=== PATIENT | male | born 1955 | race Caucasian/White ===

== ENCOUNTER 2020-04-20 19:02 | Emergency (ER) | payer BC ==
[2020-04-20] MEDS ORDERED: BABY ASPIRIN 81 MG CHEW PO ONE (19:20)
--- NOTE | 2020-04-20 19:20 | ERPHSYRPT ---
- History of Present Illness Time Seen by Provider: 04/20/20 19:15 Historian: patient Exam Limitations: no limitations Patient Subjective Stated Complaint: Chest pain Triage Nursing Assessment: Patient ambulated back to ED and transferred self to bed. Patient A+O X 3. Patient's skin pink, warm and dry. Patient complains of intermittent chest pain for the past couple of days. Patient currently denies pain or discomfort. Lungs clear a/p darian. Heart tones audible. No edema noted. Physician History: This is a 64-year-old diabetic white male with a history of hypertension who sees Dr. Bibi suarez guide delegate for blood pressure issues. Patient has never been diagnosed with coronary artery disease but thought at one point he had PVCs and 10 years ago he was evaluated by this guide delegate. Patient noticed, the last 2 days, some intermittent twinges of substernal pain without radiation. He arrives today with no chest pain whatsoever but was concerned about the twinges of pain. Patient is not short of breath. He has had no fever. He denies cough. He has no abdominal pain. He has had no nausea vomiting or diarrhea. Timing/Duration: day(s) (2) Activities at Onset: none Quality: other (Patient describes the pain as a brief twinge) Location: substernal, central Chest Pain Radiation: no radiation Severity of Pain-Max: mild Severity of Pain-Current: none Modifying Factors: Improves With: nothing Associated Symptoms: denies symptoms Prior Chest Pain/Cardiac Workup: echocardiography (10 years ago), stress test (10 years ago) Nitro Today/Relief: no nitro taken today Aspirin Treatment Today: 81 mg x 1, 81 mg x 3 (Here in the emergency department), provided at home Allergies/Adverse Reactions: No Known Drug Allergies Allergy (Verified 04/20/20 19:05) Home Medications: Aspirin [Dawna Chewable Aspirin] 81 mg PO DAILY 04/02/15 [History] Metoprolol Tartrate 50 mg [Lopressor 50 MG] 50 mg PO BID 04/02/15 [History] Ezetimibe 1 tab PO DAILY 04/20/20 [History] Lisinopril 10 mg [Zestril 10 MG] 1 tab PO DAILY 04/20/20 [History] Metformin HCl 500 mg [Glucophage 500 MG] 1 tab PO BID 04/20/20 [History] Hx Influenza Vaccination/Date Given: Yes Hx Pneumococcal Vaccination/Date Given: Yes Immunizations Up to Date: Yes Travel Risk - International Travel Have you traveled outside of the country in past 3 weeks: No - Coronavirus Screening Are you exhibiting any of the following symptoms?: No Close contact with a COVID-19 positive Pt in past 14-21 Days: No - Review of Systems Constitutional: No Symptoms Eyes: No Symptoms Ears, Nose, & Throat: No Symptoms Respiratory: No Symptoms Cardiac: Chest Pain (Described as a twinge that is intermittent) Abdominal/Gastrointestinal: No Symptoms Genitourinary Symptoms: No Symptoms Musculoskeletal: No Symptoms Skin: No Symptoms Neurological: No Symptoms Psychological: No Symptoms Endocrine: No Symptoms Hematologic/Lymphatic: No Symptoms Immunological/Allergic: No Symptoms All Other Systems: Reviewed and Negative - Past Medical History Pertinent Past Medical History: Yes Neurological History: No Pertinent History Cardiac History: Hypertension Respiratory History: No Pertinent History Endocrine Medical History: Diabetes Type II Musculoskeletal History: Osteoarthritis Male Reproductive Disorders: Prostate Cancer, Prostate Problems Other Medical History: boarderline diabetic - Past Surgical History Past Surgical History: Yes Neuro Surgical History: No Pertinent History Cardiac: No Pertinent History Respiratory: No Pertinent History Gastrointestinal: No Pertinent History Genitourinary: No Pertinent History Musculoskeletal: No Pertinent History Male Surgical History: Prostate Surgery Other Surgical History: left elbow [id number], prostate [id number] - Social History Smoking Status: Never smoker Exposure to second hand smoke: No Drug Use: none Patient Lives Alone: No - Nursing Vital Signs Nursing Vital Signs: Initial Vital Signs Pulse Rate 85 04/20/20 19:09 Respiratory Rate 18 04/20/20 19:09 Blood Pressure 151/78 04/20/20 19:09 O2 Sat by Pulse Oximetry 99 04/20/20 19:09 Pain Scale Pain Intensity 0 - Physical Exam General Appearance: no apparent distress, alert, anxiety Eye Exam: PERRL/EOMI, eyes nml inspection Ears, Nose, Throat Exam: normal ENT inspection, moist mucous membranes Neck Exam: normal inspection, non-tender, supple, full range of motion Respiratory Exam: normal breath sounds, lungs clear, airway intact, No chest t enderness (On arrival he does not have chest pain), No respiratory distress Cardiovascular Exam: regular rate/rhythm, normal heart sounds, normal peripheral pulses Gastrointestinal/Abdomen Exam: soft, normal bowel sounds, No tenderness Rectal Exam: not done Back Exam: normal inspection, normal range of motion, No CVA tenderness, No vertebral tenderness Extremity Exam: normal inspection, normal range of motion, pelvis stable Neurologic Exam: alert, oriented x 3, cooperative, 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, normal mood/affect, nml cerebellar function, nml station & gait, sensation nml Skin Exam: normal color, warm, dry Lymphatic Exam: No adenopathy SpO2 Interpretation: normal SpO2: 99 O2 Delivery: Room Air - Course Nursing assessment & vital signs reviewed: Yes Ordered Tests: Active Orders 24 hr Category Date Time Status Sessions Clerk STAT Care 04/20/20 19:21 Active EKG-ER Only STAT Care 04/20/20 19:20 Active IV Insertion STAT Care 04/20/20 19:20 Active Pulse Oximetry (ED) STAT Care 04/20/20 19:20 Active CHEST 1 VIEW (PORTABLE) Stat Exams 04/20/20 19:21 Ordered CBC W DIFF Stat Lab 04/20/20 19:15 Completed CMP Stat Lab 04/20/20 19:15 Completed D-DIMER QUANTITATIVE Stat Lab 04/20/20 19:15 Completed NT PRO BNP Stat Lab 04/20/20 19:15 Completed PROTIME WITH INR Stat Lab 04/20/20 19:15 Completed TROPONIN Q3H Lab 04/20/20 19:15 Completed TROPONIN Q3H Lab 04/20/20 22:30 Ordered TROPONIN Q3H Lab 04/21/20 01:30 Ordered TROPONIN Q3H Lab 04/21/20 04:30 Ordered TROPONIN Q3H Lab 04/21/20 07:30 Ordered Medication Summary Discontinued Medications Generic Name Dose Route Start Last Admin Trade Name Freq PRN Reason Stop Dose Admin Aspirin 243 mg 04/20/20 19:20 04/20/20 19:44 Baby Aspirin 81 Mg Chew PO 04/20/20 19:21 243 mg STAT ONE Administration Lab/Rad Data: Laboratory Result Diagrams 04/20/20 19:15 04/20/20 19:15 Laboratory Results 04/20/20 04/20/20 04/20/20 Range/Units 19:15 19:15 19:15 WBC (4.0-10.5) K/mm3 RBC (4.1-5.6) M/mm3 Hgb (12.5-18.0) gm/dl Hct (42-50) % MCV (78-100) fl MCH (26-32) pg MCHC (32-36) g/dl RDW (11.5-14.0) % Plt Count (150-450) K/mm3 MPV (7.5-11.0) fl Gran % (36.0-66.0) % Eos # (Auto) (0-0.5) Absolute Lymphs (auto) (1.0-4.6) Absolute Monos (auto) (0.0-1.3) Lymphocytes % (24.0-44.0) % Monocytes % (0.0-12.0) % Eosinophils % (0.00-5.0) % Basophils % (0.0-0.4) % Absolute Granulocytes (1.4-6.9) Basophils # (0-0.4) PT 11.7 (8.83-12.87) SECONDS INR 1.04 (0.8-3.0) D-Dimer 235 (215-500) ng/mL Sodium 139 (137-145) mmol/L Potassium 3.4 L (3.5-5.1) mmol/L Chloride 102 (98-107) mmol/L Carbon Dioxide 27 (22-30) mmol/L Anion Gap 14.1 (5-15) MEQ/L BUN 16 (9-20) mg/dL Creatinine 0.72 (0.66-1.25) mg/dL Estimated GFR > 60.0 ML/MIN Glucose 108 H (74-106) mg/dL Calcium 9.8 (8.4-10.2) mg/dL Total Bilirubin 1.80 H (0.2-1.3) mg/dL AST 37 (17-59) U/L ALT 24 (0-50) U/L Alkaline Phosphatase 57 (38-126) U/L Troponin I < 0.012 (0.000-0.034) ng/mL NT-Pro-B Natriuret Pep 70.6 (0-900) pg/mL Serum Total Protein 7.8 (6.3-8.2) g/dL Albumin 4.9 (3.5-5.0) g/dL 04/20/20 Range/Units 19:15 WBC 10.5 (4.0-10.5) K/mm3 RBC 4.73 (4.1-5.6) M/mm3 Hgb 14.4 (12.5-18.0) gm/dl Hct 43.1 (42-50) % MCV 91.1 (78-100) fl MCH 30.4 (26-32) pg MCHC 33.4 (32-36) g/dl RDW 12.7 (11.5-14.0) % Plt Count 268 (150-450) K/mm3 MPV 9.4 (7.5-11.0) fl Gran % 60.7 (36.0-66.0) % Eos # (Auto) 0.18 (0-0.5) Absolute Lymphs (auto) 2.89 (1.0-4.6) Absolute Monos (auto) 1.01 (0.0-1.3) Lymphocytes % 27.7 (24.0-44.0) % Monocytes % 9.7 (0.0-12.0) % Eosinophils % 1.7 (0.00-5.0) % Basophils % 0.2 (0.0-0.4) % Absolute Granulocytes 6.35 (1.4-6.9) Basophils # 0.02 (0-0.4) PT (8.83-12.87) SECONDS INR (0.8-3.0) D-Dimer (215-500) ng/mL Sodium (137-145) mmol/L Potassium (3.5-5.1) mmol/L Chloride (98-107) mmol/L Carbon Dioxide (22-30) mmol/L Anion Gap (5-15) MEQ/L BUN (9-20) mg/dL Creatinine (0.66-1.25) mg/dL Estimated GFR ML/MIN Glucose (74-106) mg/dL Calcium (8.4-10.2) mg/dL Total Bilirubin (0.2-1.3) mg/dL AST (17-59) U/L ALT (0-50) U/L Alkaline Phosphatase (38-126) U/L Troponin I (0.000-0.034) ng/mL NT-Pro-B Natriuret Pep (0-900) pg/mL Serum Total Protein (6.3-8.2) g/dL Albumin (3.5-5.0) g/dL - Progress Progress: improved Air Movement: good Progress Note: 04/20/20 20:48 No acute cardiopulmonary process seen on chest x-ray Blood Culture(s) Obtained: No Antibiotics given: No Counseled pt/family regarding: lab results, diagnosis, need for follow-up, rad results - Departure Departure Disposition: Home Clinical Impression: Non-cardiac chest pain Condition: Stable Critical Care Time: No Referrals: CLARITA YOU MD [Primary Care Provider] - Additional Instructions: Call your guide delegate Wednesday morning to make arranges for follow-up appointment
[2020-04-20 19:43] LABS: Absolute Neutrophil Ct (ANC) 6.35 (1.4-6.9); BASOPHIL % 0.2 % (0.0-0.4); Basophil (Absolute #) 0.02 (0-0.4); Eosinophil % 1.7 % (0.00-5.0); Eosinophil (Absolute #) 0.18 (0-0.5); Hematocrit 43.1 % (42-50); Hemoglobin 14.4 gm/dl (12.5-18.0); Lymphocyte (Absolute #) 2.89 (1.0-4.6); Lymphocytes % 27.7 % (24.0-44.0); Mean Cell Volume 91.1 fl (78-100); Mean Corpuscular Hemoglobin 30.4 pg (26-32); Mean Corpuscular Hgb Concent. 33.4 g/dl (32-36); Mean Platelet Volume 9.4 fl (7.5-11.0); Monocyte (Absolute #) 1.01 (0.0-1.3); Monocytes % 9.7 % (0.0-12.0); Neutrophil % 60.7 % (36.0-66.0); Platelet Count 268 K/mm3 (150-450); Red Blood Count 4.73 M/mm3 (4.1-5.6); Red Cell Distribution Width 12.7 % (11.5-14.0); White Blood Count 10.5 K/mm3 (4.0-10.5)
[2020-04-20 19:46] LABS: INR 1.04 (0.8-3.0); PROTIME 11.7 SECONDS (8.83-12.87)
[2020-04-20 20:00] LABS: ALBUMIN 4.9 g/dL (3.5-5.0); ALKALINE PHOSPHATASE 57 U/L (38-126); ANION GAP 14.1 MEQ/L (5-15); BLOOD UREA NITROGEN 16 mg/dL (9-20); CHLORIDE 102 mmol/L (98-107); Calcium 9.8 mg/dL (8.4-10.2); Carbon Dioxide 27 mmol/L (22-30); Creatinine 1 0.72 mg/dL (0.66-1.25); EST GLOMERULAR FILTRATION RATE > 60.0 ML/MIN; Glucose 108 mg/dL (74-106); NT PRO BNP 70.6 pg/mL (0-900); Potassium 3.4 mmol/L (3.5-5.1); SGOT/AST 37 U/L (17-59); SGPT/ALT 24 U/L (0-50); SODIUM 139 mmol/L (137-145); Total Protein 7.8 g/dL (6.3-8.2)
[2020-04-20 20:56] VITALS: BP 121/69; PULSE 68; O2SAT 95
--- NOTE | 2020-04-22 08:06 | XRAY ---
Indication: Chest pain. Comparison: September 27, 2012. Portable chest remains clear. Heart is not enlarged for AP portable technique. Bony thorax intact. Impression: Continued nonacute chest.
== END 2020-04-20 21:02 | disposition home or self-care (01) ==
LOC: ED 19:02
DX: R07.89 Other chest pain (principal); I10 Essential (primary) hypertension; E11.9 Type 2 diabetes mellitus without complications
CPT/HCPCS: 36000; 36415; 71045; 80053; 83880; 84484; 85025; 85379; 85610; 93005; 93041; 94760; 99284; A9270-GY

== ENCOUNTER 2022-03-25 10:49 | Day surgery (SDC) | payer MEDICARE, OTHER ==
[2022-03-25] MEDS ORDERED: BUPIVACAINE 0.5% VIAL IJ ONE (10:50)
[2022-03-25] MEDS ORDERED: Depo-Medrol 40 MG/ML IM ONE (10:50)
[2022-03-25] MEDS ORDERED: Xylocaine 1% Vial 30 ML PF IJ ONE (10:50)
--- NOTE | 2022-03-25 12:38 | XRAY ---
Indication: Right SI joint injection. Intraoperative fluoroscopy provided for 12 seconds. 2 digital spot images submitted for interpretation demonstrates posterior needle tip projecting over the right SI joint. Correlate with intraoperative findings/report.
--- NOTE | 2022-03-25 13:29 | XRAY ---
12 seconds of fluoroscopy was used in surgery for a right sacroiliac joint injection.
== END 2022-03-25 11:59 | disposition home or self-care (01) ==
LOC: SDC-PAIN 10:49
PROVIDERS: ATTEND Psychiatry & Neurology Pain Medicine
DX: M46.1 Sacroiliitis, not elsewhere classified (principal); Z79.899 Other long term (current) drug therapy
CPT/HCPCS: 27096; 72170; 77002; G0260; J1030; J2001

== ENCOUNTER 2022-05-18 02:38 | Emergency (ER) | payer MEDICARE, OTHER ==
[2022-05-18] MEDS ORDERED: Sodium Chloride 0.9% 1000 ML 1,000 ML IV STA (03:00)
[2022-05-18] MEDS ORDERED: Sodium Chloride 0.9% 1000 ML 1,000 ML ONE (03:13)
[2022-05-18 03:15] LABS: Absolute Neutrophil Ct (ANC) 5.78 x10^3/uL (1.4-6.9); Basophil (Absolute #) 0.02 x10^3/uL (0-0.4); Eosinophil % 2.4 % (0.00-5.0); Eosinophil (Absolute #) 0.22 x10^3/uL (0-0.5); Hemoglobin 13.7 g/dL (12.5-18.0); Lymphocyte (Absolute #) 2.32 x10^3/uL (1.0-4.6); Lymphocytes % 25.4 % (24.0-44.0); Mean Cell Volume 90.7 fL (78-100); Mean Corpuscular Hemoglobin 29.6 pg (26-32); Mean Corpuscular Hgb Concent. 32.6 g/dL (32-36); Mean Platelet Volume 8.9 fL (7.5-11.0); Monocyte (Absolute #) 0.76 x10^3/uL (0.0-1.3); Monocytes % 8.3 % (0.0-12.0); Neutrophil % 63.5 % (36.0-66.0); Platelet Count 274 x10^3/uL (150-450); Red Blood Count 4.63 x10^6/uL (4.1-5.6); Red Cell Distribution Width 12.2 % (11.5-14.0); White Blood Count 9.1 x10^3/uL (4.0-10.5)
--- NOTE | 2022-05-18 03:20 | ERPHSYRPT ---
- History of Present Illness Time Seen by Provider: 05/18/22 02:50 Source: patient Exam Limitations: no limitations Patient Subjective Stated Complaint: pain in right lower quad, that sometimes radiates to the right side, states he is feeling more pressure on the left side of body. pt has no tenderness on palpation, no rigidity. Triage Nursing Assessment: pt alert and oriented, able to answer all questions, pt was able to ambulate to room without difficulty, laying in bed with at bedside, bp elevated at 138/103 Physician History: Patient has right lower quadrant pain x1 month. Dull, aching. No falls no trau ma. No other fever. Patient has a CT scan scheduled for this week as well as blood work. However, he presented to the ER tonight. States over the past 2 to 3 days he has had some increasing and worsening pain. No other recent falls or trauma. No fever, cough, cold, congestion. Has not tried anything to make it better or worse. He has no other symptoms, no dysuria, shortness of breath, chest pain. Timing/Duration: week(s) Modifying Factors: Improves With: medication, other Allergies/Adverse Reactions: No Known Drug Allergies Allergy (Verified 04/20/20 19:05) Home Medications: Aspirin [Dawna Chewable Aspirin] 81 mg PO DAILY 04/02/15 [History] Metoprolol Tartrate 50 mg [Lopressor 50 MG] 50 mg PO BID 04/02/15 [History] Ezetimibe 1 tab PO DAILY 04/20/20 [History] Lisinopril 10 mg [Zestril 10 MG] 1 tab PO DAILY 04/20/20 [History] Metformin HCl 500 mg [Glucophage 500 MG] 1 tab PO BID 04/20/20 [History] Hx Influenza Vaccination/Date Given: Yes Hx Pneumococcal Vaccination/Date Given: Yes Travel Risk - International Travel Have you traveled outside of the country in past 3 weeks: No - Coronavirus Screening Are you exhibiting any of the following symptoms?: No Close contact with a COVID-19 positive Pt in past 14-21 Days: No - Vaccine Status Have you recieved a Covid-19 vaccination: Yes 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: [employer] - Vaccination Dates Date of 2cond Vaccination (if applicable): unknown - Review of Systems Constitutional: No Fever, No Chills Eyes: No Symptoms Ears, Nose, & Throat: No Symptoms Respiratory: No Cough, No Dyspnea Cardiac: No Chest Pain, No Edema, No Syncope Abdominal/Gastrointestinal: Abdominal Pain, No Nausea, No Vomiting, No Diarrhea Genitourinary Symptoms: No Dysuria Musculoskeletal: No Back Pain, No Neck Pain Skin: No Rash Neurological: No Dizziness, No Focal Weakness, No Sensory Changes Psychological: No Symptoms Endocrine: No Symptoms All Other Systems: Reviewed and Negative - Past Medical History Pertinent Past Medical History: Yes Neurological History: No Pertinent History Cardiac History: Hypertension Respiratory History: No Pertinent History Endocrine Medical History: Other Musculoskeletal History: Osteoarthritis Male Reproductive Disorders: Prostate Cancer, Prostate Problems Other Medical History: PRE DIABETIC, HEART FLUTTERS - Past Surgical History Past Surgical History: Yes Neuro Surgical History: No Pertinent History Cardiac: No Pertinent History Respiratory: No Pertinent History Gastrointestinal: No Pertinent History Genitourinary: No Pertinent History Musculoskeletal: No Pertinent History Male Surgical History: Prostate Surgery Other Surgical History: left elbow [id number], prostate [id number] - Social History Smoking Status: Never smoker Exposure to second hand smoke: No Drug Use: none Patient Lives Alone: No - Nursing Vital Signs Nursing Vital Signs: Initial Vital Signs Temperature 97.8 F 05/18/22 02:47 Pulse Rate 64 05/18/22 02:47 Respiratory Rate 18 05/18/22 02:47 Blood Pressure 138/103 05/18/22 02:47 O2 Sat by Pulse Oximetry 97 05/18/22 02:47 Pain Scale Pain Intensity 4 - Physical Exam General Appearance: no apparent distress, alert Eye Exam: PERRL/EOMI, eyes nml inspection Ears, Nose, Throat Exam: normal ENT inspection, TMs normal, pharynx normal, moist mucous membranes Neck Exam: normal inspection, non-tender, supple, full range of motion Respiratory Exam: normal breath sounds, lungs clear, No respiratory distress Cardiovascular Exam: regular rate/rhythm, normal heart sounds, normal peripheral pulses Gastrointestinal/Abdomen Exam: soft, normal bowel sounds, other (No abdominal tenderness on my exam. No rebound or guarding.), No tenderness, No mass Back Exam: normal inspection, normal range of motion, No CVA tenderness, No vertebral tenderness Extremity Exam: normal inspection, normal range of motion, pelvis stable Neurologic Exam: alert, oriented x 3, cooperative, normal mood/affect, nml cerebellar function, nml station & gait, sensation nml, No motor deficits Skin Exam: normal color, warm, dry, No rash Lymphatic Exam: No adenopathy SpO2: 97 - Course Nursing assessment & vital signs reviewed: Yes Ordered Tests: Active Orders 24 hr Category Date Time Status IV Insertion STAT Care 05/18/22 03:00 Active ABDOMEN AND PELVIS W&WO CONTRA [CT] Stat Exams 05/18/22 03:00 Taken CBC W DIFF Stat Lab 05/18/22 03:15 Completed CMP Stat Lab 05/18/22 03:15 Completed LIPASE Stat Lab 05/18/22 03:15 Completed UA W/RFX CULTURE Stat Lab 05/18/22 03:30 Completed Medication Summary Discontinued Medications Generic Name Dose Route Start Last Admin Trade Name Freq PRN Reason Stop Dose Admin Sodium Chloride 1,000 mls @ 999 mls/hr 05/18/22 03:00 05/18/22 03:16 Sodium Chloride 0.9% 1000 Ml IV 05/18/22 04:00 999 mls/hr .Q1H1M STA Administration Sodium Chloride Confirm 05/18/22 03:13 Sodium Chloride 0.9% 1000 Ml Administered 05/18/22 03:14 Dose 1,000 mls @ ud .ROUTE .STK-MED ONE Lab/Rad Data: Laboratory Result Diagrams 05/18/22 03:15 05/18/22 03:15 Laboratory Results 05/18/22 05/18/22 05/18/22 Range/Units 03:30 03:15 03:15 WBC 9.1 (4.0-10.5) x10^3/uL RBC 4.63 (4.1-5.6) x10^6/uL Hgb 13.7 (12.5-18.0) g/dL Hct 42.0 (42-50) % MCV 90.7 (78-100) fL MCH 29.6 (26-32) pg MCHC 32.6 (32-36) g/dL RDW 12.2 (11.5-14.0) % Plt Count 274 (150-450) x10^3/uL MPV 8.9 (7.5-11.0) fL Gran % 63.5 (36.0-66.0) % Immature Gran % (Auto) 0.2 (0.00-0.4) % Nucleat RBC Rel Count 0.0 (0.00-0.1) % Eos # (Auto) 0.22 (0-0.5) x10^3/uL Immature Gran # (Auto) 0.02 (0.00-0.03) x10^3u/L Absolute Lymphs (auto) 2.32 (1.0-4.6) x10^3/uL Absolute Monos (auto) 0.76 (0.0-1.3) x10^3/uL Absolute Nucleated RBC 0.00 (0.00-0.01) x10^3u/L Lymphocytes % 25.4 (24.0-44.0) % Monocytes % 8.3 (0.0-12.0) % Eosinophils % 2.4 (0.00-5.0) % Basophils % 0.2 (0.0-0.4) % Absolute Granulocytes 5.78 (1.4-6.9) x10^3/uL Basophils # 0.02 (0-0.4) x10^3/uL Sodium 138 (137-145) mmol/L Potassium 3.9 (3.5-5.1) mmol/L Chloride 104 (98-107) mmol/L Carbon Dioxide 27 (22-30) mmol/L Anion Gap 10.2 (5-15) MEQ/L BUN 15 (9-20) mg/dL Creatinine 0.72 (0.66-1.25) mg/dL Estimated GFR > 60.0 ML/MIN Glucose 111 H (74-106) mg/dL Calcium 9.5 (8.4-10.2) mg/dL Total Bilirubin 2.10 H (0.2-1.3) mg/dL AST 49 (17-59) U/L ALT 59 H (0-50) U/L Alkaline Phosphatase 65 (38-126) U/L Serum Total Protein 7.2 (6.3-8.2) g/dL Albumin 4.5 (3.5-5.0) g/dL Lipase 77 (23-300) U/L Urinalys Dipstick Clnc MAIN LAB Urine Color YELLOW (YELLOW) Urine Appearance CLEAR (CLEAR) Urine pH 5.0 (5-6) Ur Specific [place] >=1.030 A (1.005-1.025) POC Urine Protein Conf NEGATIVE (Negative) Urine Ketones NEGATIVE (NEGATIVE) Urine Nitrite NEGATIVE (NEGATIVE) Urine Bilirubin NEGATIVE (NEGATIVE) Urine Urobilinogen 0.2 (0-1) mg/dL Urine Leukocytes NEGATIVE (NEGATIVE) Urine WBC (Auto) NONE (0-5) /HPF Urine RBC (Auto) NONE (0-2) /HPF U Epithel Cells (Auto) Not Reportable Urine Bacteria (Auto) Not Reportable Urine RBC SMALL A (0-5) Edilberto/ul Urine Mucus (Auto) SLIGHT A (NEGATIVE) /HPF Ur Culture Indicated? NO Urine Glucose NEGATIVE (NEGATIVE) mg/dL - Progress Progress: improved Progress Note: 05/18/22 03:19 differential diagnosis includes kidney stone, compression fracture, infection, UTI, triple AAA - basic labs including: CBC, lipase, CMP, UA - insert IV for fluids, pain meds, nausea control - consider imaging: CT ab/pelvis Patient feels improved with medication. 05/18/22 05:22 CT scan shows no obvious pathology. Some hepatomegaly, renal cysts. I did recommend close follow-up with PCP. Patient may return here for any new or changing symptoms. Labs otherwise negative. Pain well controlled. Counseled pt/family regarding: lab results, diagnosis, rad results - Departure Departure Disposition: Home Clinical Impression: Right lower quadrant pain Condition: Stable Critical Care Time: No Referrals: CLARITA YOU MD [Primary Care Provider] - Follow up/PCP as directed Instructions: Flank Pain Additional Instructions: Call Dr. Easley today for close outpatient follow up.
[2022-05-18 03:31] LABS: ALBUMIN 4.5 g/dL (3.5-5.0); ALKALINE PHOSPHATASE 65 U/L (38-126); ANION GAP 10.2 MEQ/L (5-15); BLOOD UREA NITROGEN 15 mg/dL (9-20); CHLORIDE 104 mmol/L (98-107); Calcium 9.5 mg/dL (8.4-10.2); Carbon Dioxide 27 mmol/L (22-30); Creatinine 1 0.72 mg/dL (0.66-1.25); EST GLOMERULAR FILTRATION RATE > 60.0 ML/MIN; Glucose 111 mg/dL (74-106); LIPASE 77 U/L (23-300); Potassium 3.9 mmol/L (3.5-5.1); SGOT/AST 49 U/L (17-59); SGPT/ALT 59 U/L (0-50); SODIUM 138 mmol/L (137-145); Total Protein 7.2 g/dL (6.3-8.2)
[2022-05-18 03:38] LABS: Mucus SLIGHT /HPF (NEGATIVE)
[2022-05-18 03:39] LABS: Appearance CLEAR (CLEAR); Bilirubin NEGATIVE (NEGATIVE); Glucose NEGATIVE (NEGATIVE); Ketones NEGATIVE (NEGATIVE); Nitrite NEGATIVE (NEGATIVE); Protein,Urine Dip NEGATIVE (Negative); RBC SMALL Ery/ul (0-5); Specific Gravity >=1.030 (1.005-1.025); Urobilinogen 0.2 mg/dL (0-1)
[2022-05-18 03:40] LABS: Dipstick done @ ? MAIN LAB; Urine Cultured Indicated? NO
[2022-05-18 05:21] VITALS: BP 126/88; PULSE 89; O2SAT 97
--- NOTE | 2022-05-18 09:07 | XRAY ---
Indication: Right lower quadrant pain. Multiple contiguous axial images obtained through the abdomen and pelvis prior to and following 80 cc Isovue 370 contrast as ordered. Comparison: CT abdomen March 29, 2015 Lung bases again demonstrate mild bilateral dependent atelectasis and tiny right posterior gutter calcified granuloma. Heart not enlarged. Noncontrasted images are negative for pathologic visceral calcifications/calculi. Noncontrasted stomach and bowel loops appear nonobstructed with normal appendix. Minimal sigmoid diverticulosis not previously imaged. Again 20 cm fatty hepatomegaly. Prostate radiation seeds not previously imaged. No free fluid/air. Postcontrast images demonstrates normal visceral enhancement and renal excretion. Enlarging 3.7 cm left lower renal cyst. New 1 cm left mid renal cyst. Remaining liver, gallbladder, pancreas, spleen, adrenal glands, kidneys, ureters, and bladder are unremarkable. Minimally worsening mild scattered aortoiliac calcifications. No AAA or pathologic retroperitoneal lymphadenopathy. Osseous structures intact with progressive worsening mild/moderate degenerative spondylosis throughout thoracolumbar spine, greatest L2-L4 levels. New 2-3 mm degenerative anterolisthesis of L4 on L5. Stable degenerative changes both SI joints and small left sacral bone island. No ventral or inguinal hernias. Impression: 1. Again right lung base calcified granuloma. No new pathologic visceral calcification/calculi. 2. Sigmoid diverticulosis and prostate radiation seeds not previously imaged. 3. Again chronic findings including fatty hepatomegaly, left renal cysts, arteriosclerotic disease, and chronic bony findings. 4. Remaining CT abdomen/pelvis with and without contrast exam is negative. Comment: Preliminary interpretation made by [facility]. No critical discrepancy.
== END 2022-05-18 05:31 | disposition home or self-care (01) ==
LOC: ED 02:38
DX: R10.31 Right lower quadrant pain (principal); I10 Essential (primary) hypertension; R73.03 Prediabetes; Z79.899 Other long term (current) drug therapy; Z79.84 Long term (current) use of oral hypoglycemic drugs
CPT/HCPCS: 36415; 74178; 80053; 81015; 83690; 85025; 96360; 99283

== ENCOUNTER 2025-03-20 06:35 | Day surgery (SDC) | payer MEDICARE, OTHER ==
[2025-03-20 07:01] LABS: BASOPHIL % 0.3 % (0.2-1.2); Basophil (Absolute #) 0.02 x10^3/uL (0.01-0.08); Eosinophil (Absolute #) 0.18 x10^3/uL (0.04-0.54); Hematocrit 45.2 % (40.1-51.0); Hemoglobin 15.1 g/dL (13.7-17.5); IMMATURE GRAN # 0.02 x10^3u/L (0.001-0.031); IMMATURE GRAN % 0.3 % (0.001-0.429); Lymphocyte (Absolute #) 1.79 x10^3/uL (1.32-3.57); Mean Corpuscular Hemoglobin 29.4 pg (25.7-32.2); Mean Corpuscular Hgb Concent. 33.4 g/dL (32.3-36.5); Monocyte (Absolute #) 0.69 x10^3/uL (0.30-0.82); NUCLEATED RBC # 0.00 x10^3u/L (0.00-0.012); NUCLEATED RBC % 0.0 % (0.00-0.2); Platelet Count 295 x10^3/uL (163-337); Red Blood Count 5.14 x10^6/uL (4.63-6.08); White Blood Count 7.6 x10^3/uL (4.23-9.07)
[2025-03-20 07:14] LABS: Calcium 9.9 mg/dL (8.4-10.2); Carbon Dioxide 25.0 mmol/L (22-30); Creatinine 1 0.78 mg/dL (0.66-1.25); EST GLOMERULAR FILTRATION RATE 97.1 ML/MIN; Glucose 125.0 mg/dL (74-106); Potassium 3.8 mmol/L (3.5-5.1)
[2025-03-20] MEDS: Lactated Ringers 1,000 ML IV SCH (07:22)
[2025-03-20] MEDS ORDERED: Xylocaine-Mpf 2% 5 Ml Vial ONE (08:00)
[2025-03-20] MEDS ORDERED: propofoL IV ONE ×2 (08:01→08:18)
[2025-03-20] MEDS ORDERED: SUBLIMAZE 100 MCG/2 ML ONE (08:15)
[2025-03-20] MEDS ORDERED: ATROPINE SULFATE 1MG ONE (08:17)
[2025-03-20 09:21] VITALS: RESP 16; O2SAT 94
[2025-03-20 09:48] VITALS: BP 107/82; PULSE 63; TEMP 98
--- NOTE | 2025-03-21 09:33 | OP ---
SURGERY DATE/TIME: 03/20/2025 [id number] PREOPERATIVE DIAGNOSIS: Screening exam. POSTOPERATIVE DIAGNOSIS: Normal colon. PROCEDURE: Colonoscopy. SURGEON: Devon Easley MD ANESTHESIA: Medication given by the anesthesia department. INDICATIONS: The patient is a 69-year-old white male patient presenting now for a screening colonoscopy. He reports his previous one was normal at 10 years ago. The patient was described of the risks of the procedure including risk of perforation, phlebitis, untoward reaction to medication, bleeding, and missed lesions. The patient verbalized his understanding and desired to have procedure performed. DESCRIPTION OF PROCEDURE AND FINDINGS: The patient was given medication by the anesthesia department. He had continuous pulse oximetry, ECG monitoring, and intermittent blood pressure monitoring during the examination. He was placed in left lateral decubitus position. Digital rectal examination was performed and revealed normal anal sphincter tone, no masses, and a normal prostate. The flexible Olympus videocolonoscope was used to intubate the rectum. A view of the colon was developed sequentially to the cecum. Upon insertion and withdrawal, including retroflexed view of the rectum, no mucosal lesions were encountered. The scope was removed from the patient who tolerated the procedure well and was sent back to outpatient recovery unit in good condition. The prep was noted to be fair to good.
== END 2025-03-20 10:15 | disposition home or self-care (01) ==
LOC: SDC 06:35
PROVIDERS: ATTEND Family Medicine
DX: Z12.11 Encounter for screening for malignant neoplasm of colon (principal); I10 Essential (primary) hypertension; R73.03 Prediabetes
CPT/HCPCS: 36415; 80048; 82947; 85025; G0121